=== PATIENT | female | born 1990 | race Hispanic/Latino ===

== ENCOUNTER 2017-12-23 02:26 | Emergency (ER) | payer OTHER ==
--- NOTE | 2017-12-23 02:59 | C.PDOC ---
History Of Present Illness 27 year old female presents to the ER with complaint of sudden onset of left sided pleuritic chest pain that began 1 hour ago and woke her from sleep, associated with feeling SOB. Patient reports she is currently on control pills. Denies recent cough, fever, hemoptysis, calf pain, or calf swelling. Chief Complaint (Nursing): Chest Pain History Per: Patient History/Exam Limitations: no limitations Onset/Duration Of Symptoms: Hrs, Sudden Onset Current Symptoms Are (Timing): Still Present Associated Symptoms: denies: Nausea, Dyspnea, Diaphoresis, Syncope Modifying Factors: None Exacerbating Factors: None Alleviating Factors: None Recent travel outside of the [place]: No Past Medical History Reviewed: Historical Data, Nursing Documentation, Vital Signs Vital Signs: Last Vital Signs Temp 98.1 F 12/23/17 04:31 Pulse 75 12/23/17 04:31 Resp 18 12/23/17 04:31 BP 95/64 L 12/23/17 04:31 Pulse Ox 98 12/23/17 04:31 Surgical History: Tonsillectomy Family History: States: Unknown Family Hx - Social History Hx Alcohol Use: No Hx Substance Use: No Review Of Systems Constitutional: Negative for: Fever Cardiovascular: Positive for: Chest Pain Respiratory: Positive for: Shortness of Breath. Negative for: Cough Gastrointestinal: Negative for: Nausea, Vomiting, Other (Hemoptysis) Physical Exam - Physical Exam Appears: Non-toxic, Other (Mild distress) Skin: Normal Color, Warm, Dry Head: Atraumatic, Normacephalic Eye(s): bilateral: Normal Inspection Nose: Normal Oral Mucosa: Moist Chest: Symmetrical, No Tenderness, Other (Pain with breathing) Cardiovascular: Rhythm Regular (s1 and s2 within normal limits) Respiratory: Normal Breath Sounds, No Rales, No Rhonchi, No Wheezing, Other ( Shallow breathing) Gastrointestinal/Abdominal: Soft, No Tenderness Neurological/Psych: Oriented x3, Normal Speech ED Course And Treatment - Laboratory Results Result Diagrams: 12/23/17 03:14 12/23/17 03:14 ECG: Interpreted By Me, Viewed By Me ECG Rhythm: Sinus Rhythm ECG Interpretation: Normal Rate From EC O2 Sat by Pulse Oximetry: 100 (room air) Pulse Ox Interpretation: Normal Medical Decision Making Medical Decision Making: Impression is atypical chest pain vs chest wall pain, will do screening for blood clot, CXR, and reassess.Pt feels she might be even though has negative HCG.Refuses pain meds,CXR Disposition - Disposition Referrals: [facility] [Outside] Disposition: HOME/ ROUTINE Disposition Time: 06:46 Condition: GOOD Instructions: Costochondritis Forms: [facility] (Swedish) - Clinical Impression Clinical Impression: Pleuritic pain, Chest wall pain - Scribe Statement The provider has reviewed the documentation as recorded by the Scribsamanta Barber All medical record entries made by the Annetteibsamanta were at my direction and personally dictated by me. I have reviewed the chart and agree that the record accurately reflects my personal performance of the history, physical exam, medical decision making, and the department course for this patient. I have also personally directed, reviewed, and agree with the discharge instructions and disposition.
[2017-12-23 03:27] LABS: BASO # 0.1 K/uL (0.0-0.2); EOS # 0.1 K/uL (0.0-0.7); EOS % 1.3 % (0.0-4.0); HEMOGLOBIN 13.9 g/dL (11.0-16.0); LYMPH # 2.1 K/uL (1.0-4.3); LYMPH % 35.9 % (20.0-40.0); MEAN CELL VOLUME 90.5 fL (81.0-99.0); MEAN CORPUSCULAR HEMOGLOBIN 31.6 pg (27.0-31.0); MEAN CORPUSCULAR HGB CONC 34.9 g/dL (33.0-37.0); MEAN PLATELET VOLUME 8.3 fL (7.2-11.7); MONO # 0.4 K/uL (0.0-0.8); MONO % 7.2 % (0.0-10.0); NEUT # 3.2 K/uL (1.8-7.0); NEUT % 54.6 % (50.0-75.0); NRBC % 0.1 % (0.0-2.0); RBC 4.4 Mil/uL (3.80-5.20); WHITE BLOOD COUNT 5.9 K/uL (4.8-10.8)
[2017-12-23 03:37] LABS: ALB/GLOB RATIO 1.5 (1.0-2.1); ALBUMIN 4.4 g/dL (3.5-5.0); ALT/SGPT 21 U/L (9-52); AST/SGOT 13 U/L (14-36); BLOOD UREA NITROGEN 15 mg/dL (7-17); GFR AFRICAN-AMERICAN > 60; GFR NON-AFRICAN AMERICAN > 60
[2017-12-23 04:44] VITALS: BP 95/64; PULSE 75; RESP 18; TEMP 98.1
[2017-12-23 06:48] VITALS: O2SAT 100
--- NOTE | 2017-12-26 07:36 | CARD ---
APPROVED REPORT EKG Measurement Heart [id number] <Conclusion> Normal sinus rhythm with sinus arrhythmia Normal ECG
== END 2017-12-23 04:33 | disposition home or self-care (01) ==
LOC: C.ER 02:26
DX: R07.81 Pleurodynia (principal)